=== PATIENT | female | born 1980 | race Caucasian/White ===

== ENCOUNTER 2016-05-23 10:57 | Emergency (ER) | payer OTHER ==
[~2016-05-23] VITALS: Ht 162.6 cm; Wt 59.1 kg
[2016-05-23 11:09] VITALS: BP 114/61; PULSE 98; TEMP 98.5
[2016-05-23 12:03] LABS: INFLUENZA B NEGATIVE
[2016-05-23] MEDS ORDERED: AMOXICILLIN 8751 TAB PO (12:24)
== END 2016-05-23 12:33 | disposition home or self-care (01) ==
LOC: COL.ER 10:57
PROVIDERS: Physician Assistant Medical
DX: J01.00 Acute maxillary sinusitis, unspecified (principal); F17.210 Nicotine dependence, cigarettes, uncomplicated

== ENCOUNTER 2016-06-08 15:50 | Emergency (ER) | payer OTHER ==
[~2016-06-08] VITALS: Ht 162.6 cm; Wt 59.1 kg
[~2016-06-08 15:50] MED LIST: AMOXICILLIN 8751 TAB PO
[2016-06-08 15:52] VITALS: BP 123/72; TEMP 98
[2016-06-08 16:45] LABS: PH 5 (5-8); URINE APPEARANCE Cloudy; URINE BACTERIA Rare /hpf; URINE BILIRUBIN Negative (NEGATIVE); URINE BLOOD Negative (NEGATIVE); URINE COLOR Yellow; URINE GLUCOSE Negative (NEGATIVE); URINE KETONE Negative (NEGATIVE); URINE RBC 0-2 /hpf; URINE UROBILINOGEN Negative (NEGATIVE)
[2016-06-08] MEDS ORDERED: ULTRAM 50MG TAB50 MG PO (16:58)
[2016-06-08] MEDS ORDERED: CEFTIN500 MG PO (16:58)
[2016-06-08] MEDS ORDERED: MEDROL 4MG DOSPA4 MG PO (16:58)
[2016-06-08 17:11] VITALS: PULSE 91
== END 2016-06-08 17:12 | disposition home or self-care (01) ==
LOC: COL.ER 15:50
PROVIDERS: Nurse Practitioner
DX: M54.31 Sciatica, right side (principal); N39.0 Urinary tract infection, site not specified
CPT/HCPCS: J1885; J2360

== ENCOUNTER 2016-06-11 03:40 | Emergency (ER) | payer OTHER ==
[~2016-06-11] VITALS: Ht 162.6 cm; Wt 59.1 kg
[~2016-06-11 03:40] MED LIST changes: +CEFTIN500 MG PO; +MEDROL 4MG DOSPA4 MG PO; +ULTRAM 50MG TAB50 MG PO
[2016-06-11 03:42] VITALS: TEMP 98.6
[2016-06-11 04:12] LABS: BASO % 0.4 % (0.0-2.0); EOS # 0.1 (0.0-0.7); EOS % 1.1 % (0-4.0); GRAN # 7.8 (1.4-6.5); GRAN % 73.9 % (42.2-75.2); HEMATOCRIT 37.4 % (37.0-47.0); HEMOGLOBIN 12.8 g/dl (12.5-16.0); MEAN CELL VOLUME 97 fl (80.0-100.0); MEAN CORPUSCULAR HEMOGLOBIN 33 pg (27.0-31.0); MEAN CORPUSCULAR HGB CONC 34 g/dl (33.0-37.0); MEAN PLATELET VOLUME 9.4 fl (7.4-10.4); MONO # 0.5 (0.1-0.6); MONO % 5.1 % (1.7-9.3); PLATELET COUNT 328 K/mm3 (130-400); RED BLOOD COUNT 3.84 M/mm3 (4.10-5.30); REDCELL DISTRIBUTION WIDTH-CV 12.7 % (11.5-14.5); WHITE BLOOD COUNT 10.6 K/mm3 (4.8-10.8)
[2016-06-11 04:22] LABS: ADJUSTED CALCIUM 8.9 mg/dL (8.4-10.2); ALBUMIN 3.9 gm/dL (3.5-5.0); BILIRUBIN,TOTAL 0.7 mg/dL (0.0-1.0); CALCIUM 8.8 mg/dL (8.4-10.2); TOTAL PROTEIN 6.9 gm/dL (6.4-8.2)
[2016-06-11 04:58] LABS: C-REACTIVE PROTEIN 2.2 mg/dL (0.0-0.9)
[2016-06-11] MEDS ORDERED: ROXICODONE 55 MG/TAB PO (05:04)
[2016-06-11] MEDS ORDERED: CEPHALEXIN500 M1 PO (05:04)
[2016-06-11 05:48] VITALS: BP 110/80; PULSE 84
== END 2016-06-11 05:49 | disposition home or self-care (01) ==
LOC: COL.ER 03:40
PROVIDERS: Emergency Medicine
DX: M54.16 Radiculopathy, lumbar region (principal); K08.89 Other specified disorders of teeth and supporting structures
CPT/HCPCS: J0696

== ENCOUNTER 2016-07-28 10:45 | Outpatient (RCR) | payer OTHER ==
[~2016-07-28 10:45] MED LIST changes: +CEPHALEXIN500 M1 PO; +ROXICODONE 55 MG/TAB PO
== END 2016-10-12 | disposition home or self-care (01) ==
LOC: MKS.ESL.PT
DX: M54.5 Low back pain (principal)
CPT/HCPCS: G0283-GP